=== PATIENT | female | born 1940 | race Caucasian/White ===

== ENCOUNTER → 2016-11-28 | Outpatient (CLI) | payer MEDICARE, OTHER ==
[~2016-11-28] MED LIST: CYMBALTA60 MG PO; LANTUS100 UNITS/ SQ; TENORMIN100 MG PO; WELLBUTRIN XL150 MG PO
== END | disposition home or self-care (01) ==
LOC: RAD.S 14:03
DX: R92.0 Mammographic microcalcification found on diagnostic imaging of breast (principal)